=== PATIENT | female | born 1985 | race Two or more races ===

== ENCOUNTER 2017-02-15 12:00 | Emergency (ER) | payer BC, SELFPAY ==
--- NOTE | ~2017-02-15 | CT2 ---
[facility] A Service of [facility] RADIOLOGY TEXT RESULTS PATIENT: MARIAN ELDRIDGE LOCATION: SED : 81 UNIT #: [id number] AGE: [address]: Everardo Hinton MD SEX: F ORDER DR: [id number] [address] [address] [id number] E MR#: [id number] Acc #: [id number] NAME: MARIAN ELDRIDGE : 1985 SEX: F STUDY DATE/TIME: 02/15/2017 13:49 UNIT: SED ROOM: STUDY DESCRIPTION: CT Abd and Pelv W Cont Attending Physician: Everardo Hinton M.D. Ordering Physician: Everardo Hinton M.D. MEDICAL IMAGING REPORT This report is preliminary unless electronic signature is present. EXAM CT abdomen and pelvis with contrast HISTORY 31-year-old female. Right lower quadrant pain with nausea, onset yesterday morning. This CT exam was performed with one or more of the following radiation dose reduction techniques: automatic exposure control, adjustment of mA and/or kV according to patient size, and iterative reconstruction. FINDINGS Axial images performed through the abdomen and pelvis following IV contrast. Multiplanar reconstructed images reviewed at a workstation. Abdomen: Lung bases demonstrate some dependent atelectasis. The liver, and spleen and gallbladder, pancreas, kidneys and adrenal glands unremarkable. No free air free fluid. Visualized GI tract to include the appendix unremarkable. Retroperitoneum unremarkable. Pelvis: In the left adnexa there is a sizeable hypodense lesion measuring up to 4.4 cm. This is most compatible with a ovarian cyst. This is most likely physiologic. But given its size could be a potential source of pain. Uterus appears normal. Osseous structures and soft tissues unremarkable. IMPRESSION 4.5 x 5 cm low-attenuation mass in the left adnexa most likely represents a physiologic ovarian cyst. This could be a potential source of pain given its size, but no focal inflammatory change is identified. Dictated by.Aldo Gr M.D. [facility] A Service of [facility] RADIOLOGY TEXT RESULTS PATIENT: MARIAN ELDRIDGE LOCATION: [facility] : [birth year] UNIT #: [id number] AGE: [address]: Everardo Hinton MD SEX: F ORDER DR: THIS IS AN ELECTRONICALLY VERIFIED REPORT Jacob Gr M.D. at 02/16/2017 10:04 AM Adriane TD: 02/16/2017 06:45 JOB #: [id number] MEDICAL IMAGING REPORT Page 1 of 1
[2017-02-15 12:31] LABS: URINE SOURCE CLEAN CATCH
[2017-02-15 12:33] LABS: URINE APPEARANCE CLEAR; URINE BILIRUBIN NEG (NEG); URINE BLOOD NEG (NEG); URINE COLOR YELLOW; URINE GLUCOSE NEG (NORM); URINE KETONE NEG (NEG); URINE LEUKOCYTE ESTERASE NEG (NEG); URINE NITRATE NEG (NEG); URINE PROTEIN NEG (NEG); URINE SPECIFIC GRAVITY 1.025 (1.003-1.035); URINE UROBILINOGEN 0.2 MG/DL (NORM)
[2017-02-15 12:34] LABS: MICRO INDICATED? NO
[2017-02-15 14:05] LABS: BASOPHIL% 0.4 % (0-2.5); EOSINOPHIL# 0.2 X10e3 (0-0.7); EOSINOPHIL% 3.3 % (0.0-7.0); HEMATOCRIT 38.8 % (35.0-45.0); HEMOGLOBIN 12.8 gm/dL (12.0-16.0); LYMPHOCYTE# 2.1 X10e3 (1.0-3.5); LYMPHOCYTE% 29.6 % (17.0-45.0); MEAN CELL VOLUME 88.3 FL (83-96); MEAN CORPUSCULAR HEMOGLOBIN 29.2 PG (28-34); MEAN CORPUSCULAR HGB CONC 33.1 g/dL (30-36); MONOCYTE# 0.8 X10e3 (0-1.0); MONOCYTE% 10.5 % (3.0-12.0); NEUTROPHIL# 4.1 X10e3 (1.5-7.1); NEUTROPHIL% 56.2 % (40-75); PLATELET COUNT 187 X10e3 (140-420); RED BLOOD COUNT 4.39 X10e (3.90-5.30); RED CELL DISTRIBUTION WIDTH 14.3 % (11.0-15.5); WHITE BLOOD COUNT 7.2 X10e3 (4.0-10.5)
[2017-02-15 14:12] LABS: DIFF IND NO
[2017-02-15 14:25] LABS: ALBUMIN SERUM 4.3 g/dL (3.5-5.0); BILIRUBIN,TOTAL 0.5 mg/dL (0.2-2.0); CALCIUM SERUM 8.9 mg/dL (8.4-10.2); CREATININE SERUM 0.5 mg/dL (0.6-1.4); GLOM FILT RATE Estimated 127.2 mL/min (>60); POTASSIUM 3.7 mmol/L (3.5-5.1); PROTEIN TOTAL SERUM 7.9 g/dL (6.0-8.3)
== END 2017-02-15 15:40 | disposition home or self-care (01) ==
LOC: SED 12:00
PROVIDERS: Emergency Medicine
DX: N83.202 Unspecified ovarian cyst, left side (principal)
CPT/HCPCS: 36415; 74177; 80053; 81003; 84703; 85025; 96361; 96374; 99284; J1170; Q9967

== ENCOUNTER → 2017-02-20 | Outpatient (CLI) | payer BC, OTHER ==
--- NOTE | ~2017-02-20 | US17 ---
[facility] A Service of [facility] RADIOLOGY TEXT RESULTS PATIENT: MARIAN CARR LOCATION: [facility] : [birth year] UNIT #: [id number] AGE: [address]: Nidhi Jeronimo APRN SEX: F ORDER DR: [id number] [facility] [address] [facility] [place], [place] [address] [id number] O MR#: [id number] Acc #: [id number] NAME: MARIAN CARR : 1985 SEX: F STUDY DATE/TIME: 02/20/2017 11:41 UNIT: [facility] ROOM: STUDY DESCRIPTION: US Breast Bilateral Attending Physician: Nidhi Jeronimo A.P.R.N. Ordering Physician: Nidhi Jeronimo A.P.R.N. Primary Care Physician: Nidhi Jeronimo A.P.R.N. MEDICAL IMAGING REPORT This report is preliminary unless electronic signature is present EXAM Bilateral breast ultrasound. HISTORY Bilateral nipple discharge and palpable abnormality in the left breast. PROCEDURE Grayscale and Doppler imaging of both breasts. COMPARISON Concurrently performed diagnostic mammogram. FINDINGS/IMPRESSION Refer to the separately dictated diagnostic mammogram for work-up, findings and recommendations. BIRADS: 1 Negative Dictated by... Scot Chowdhury M.D. THIS IS AN ELECTRONICALLY VERIFIED REPORT Scot Chowdhury M.D. at 03/04/2017 7:19 AM Kadi TD: 02/20/2017 13:27 JOB #: [id number] MEDICAL IMAGING REPORT Page 1 of 1 COPY
--- NOTE | ~2017-02-20 | MY6 ---
[facility] A Service of [facility] RADIOLOGY TEXT RESULTS PATIENT: MARIAN CARR LOCATION: [facility] : 81 UNIT #: [id number] AGE: [address]: Nidhi Jeronimo APRN SEX: F ORDER DR: [id number] [address] [id number] [facility]. [place], [place] [address] [id number] O MR#: [id number] Acc #: [id number] NAME: MARIAN CARR : 1985 SEX: F STUDY DATE/TIME: 02/20/2017 11:11 UNIT: [facility] ROOM: STUDY DESCRIPTION: MY Mammogram Dx Dig Tariq Attending Physician: Nidhi Jeronimo A.P.R.N. Ordering Physician: Nidhi Jeronimo A.P.R.N. Primary Care Physician: Nidhi Jeronimo A.P.R.N. MEDICAL IMAGING REPORT This report is preliminary unless electronic signature is present EXAM Bilateral digital diagnostic mammogram. HISTORY Bilateral clear milky discharge for the past year. Palpable lump in the left breast. PROCEDURE Bilateral CC, MLO and true lateral views obtained on a digital mammography unit. An FDA-approved CAD device was utilized. Spot compression views of the left breast in the CC and MLO projections. COMPARISON None FINDINGS Scattered fibroglandular density. There is no dominant mass and no suspicious calcification. No persistent mass in the area of concern on the spot compression views. Bilateral breast ultrasound in the subareolar regions, as well as the left breast at the 8 o'clock position in the area of the patient's palpable concern was performed and shows no sonographic abnormality. IMPRESSION Negative bilateral diagnostic mammogram and ultrasound. Recommend continued clinical follow-up, as deemed clinically appropriate. Recommend patient resume normal screening at age 40. Patients over the age of 40 are entered into a reminder system with target due date for the next mammogram. A result letter will also be sent to the patient. [facility] A Service [facility] RADIOLOGY TEXT RESULTS PATIENT: MARIAN CARR LOCATION: [facility] : 81 UNIT #: [id number] AGE: [address]: Nidhi Jeronimo APRN SEX: F ORDER DR: ILIAADS: 1 Dictated by... Scot Chowdhury M.D. THIS IS AN ELECTRONICALLY VERIFIED REPORT Scot Chowdhury M.D. at 02/20/2017 4:50 PM DENITA/dante TD: 02/20/2017 13:17 JOB #: [id number] MEDICAL IMAGING REPORT Page 1 of 1 COPY
== END | disposition home or self-care (01) ==
LOC: CMAM 10:32
DX: N64.4 Mastodynia (principal)
CPT/HCPCS: 76641; G0204